=== PATIENT | male | born 1995 | race Hispanic/Latino ===

== ENCOUNTER 2020-06-11 06:38 | Emergency (ER) | payer SELFPAY ==
--- NOTE | 2020-06-11 07:33 | RAD ---
LEFT ANKLE 3 VIEWS: HISTORY: Injury left ankle pain FINDINGS: Soft tissue swelling is present. The ankle mortise is maintained. No acute fracture or dislocation is identified.
== END 2020-06-11 07:45 | disposition home or self-care (01) ==
LOC: ERS 06:38
DX: S93.402A Sprain of unspecified ligament of left ankle, initial encounter (principal); X50.1XXA Overexertion from prolonged static or awkward postures, initial encounter

== ENCOUNTER 2020-06-11 23:55 | Inpatient (IN) | payer SELFPAY ==
[2020-06-12] MEDS ORDERED: Morphine 4 MG/ML VIAL ONE ×2 (00:19→02:45)
[2020-06-12] MEDS ORDERED: Ondansetron PF 4 MG/2 ML Vial ONE (00:19)
[2020-06-12] MEDS ORDERED: Piperacillin/Tazobactam 4.5 GM VIAL ONE (00:19)
[2020-06-12] MEDS ORDERED: Vancomycin 1 GM/200 ML BAG ONE (00:23)
[2020-06-12 00:31] LABS: #Basophils 0.1 thou/uL (0.0-0.2); #Eosinphils 0.1 thou/uL (0.0-0.7); #Lymphocytes 1.9 thou/uL (1.20-3.40); #Monocytes 1.3 thou/uL (0.11-0.59); #Neutrophils 13.6 thou/uL (1.40-6.50); %Basophils 0.5 % (0.0-1.0); %Eosinophils 0.5 % (0.0-10.0); %Monocytes 7.6 % (0.0-10.0); %Neutrophils 80.3 % (42.0-75.0); Hemoglobin 15.5 g/dL (14.0-18.0); Mean Corpuscular HGB CONC 33.8 g/dL (32.0-36.0); Mean Corpuscular Hemoglobin 30.2 pg (27.0-31.0); Mean Corpuscular Volume 89.1 fL (78.0-98.0); Mean Platelet Volume 8.1 fL (7.4-10.4); Platelet Count 236 thou/uL (130-400); RBC Distribution Width 11.4 % (11.5-14.5); Red Blood Cell (RBC) Count 5.13 mill/uL (4.70-6.10); White Blood Cell (WBC) Count 16.9 thou/uL (4.8-10.8)
[2020-06-12 00:52] LABS: ALT (SGPT) 115 U/L (8-55); AST (SGOT) 40 U/L (5-34); Albumin 4.3 g/dL (3.5-5.0); Alkaline Phosphatase 56 U/L (40-110); Anion Gap 14 mmol/L (10-20); BUN (Urea Nitrogen) 7 mg/dL (8.9-20.6); Calc. Creatinine Clearance 0 mL/min (70-130); Calcium 9.1 mg/dL (7.8-10.44); Carbon Dioxide 28 mmol/L (22-29); Chloride 98 mmol/L (98-107); Globulin 3.8 g/dL (2.4-3.5); Glucose 133 mg/dL (70-105); Potassium 3.9 mmol/L (3.5-5.1); Protein, Total 8.1 g/dL (6.0-8.3); Sodium 136 mmol/L (136-145)
[2020-06-12 02:03] LABS: Bilirubin Negative (Negative); Blood, Urine Negative (Negative); Clarity Clear (Clear); Glucose, Urine (Dipstick) Normal (Negative); Ketone, Urine Negative (Negative); Leukocyte Negative Leu/uL (Negative); Nitrite Negative (Negative); Protein, Urine (Dipstick) Negative (Neg-Trace); Specific Gravity, Urine 1.029 (1.002-1.036); Urobilinogen Normal mg/dL (Less than 2); pH, Urine 7.5 (5.0-9.0)
--- NOTE | 2020-06-12 02:25 | PDOC.HHP ---
Hospitalist HPI - History of Present Illness Abdominal pain History of Present Illness: PCP: None The patient is a 24-year-old male with no significant past medical history that presents to the emergency department for the above complaint. The patient reports the acute onset of abdominal pain the morning prior to admission to the hospital, located bilateral lower abdomen, described as dull and aching in nature, constant, increasing in intensity, exacerbated with movement and relieved by nothing. He reports associated diarrhea, having 2 episodes of loose stools. Denies any hematochezia/melena, recent travel or antibiotic usage. Denies nausea or emesis. Denies any recent fever or chills. Denies any dysuria or hematuria. He trialed ibuprofen and Imodium prior to arrival with no relief of his symptoms. He has no other complaints at this time. ED Course: VITAL SIGNS [facility] Jun 11, 2020 23:56 MAGALY Romo Susannah BP: 122/60, Pulse: 105, Resp: 20, Temp: 101.4 (Oral), Pain: 9, O2 sat: 98 on (Room Air), Time: 06/11/2020 23:56. VITAL SIGNS [place] Jun 12, 2020 00:33 MAGALY Meneses Jonathan BP: 125/68 (Right Arm), Pulse: 94, Resp: 16, O2 sat: 99 on (Room Air), Time: 1 08/13/2019 00:33. VITAL SIGNS [place] Jun 12, 2020 01:00 MAGALY Meneses Jonathan BP: 122/67 (Right Arm), MAP: 85, Pulse: 96, Resp: 16, O2 sat: 99 on (Room Air), Time: 06/12/2020 01:00. VITAL SIGNS [place] Jun 12, 2020 01:30 MAGALY Meneses Jonathan BP: 127/78 (Right Arm), MAP: 94, Pulse: 96, Resp: 18, Pain: 3, O2 sat: 99 on (Room Air), Time: 06/12/2020 01:30. VITAL SIGNS SatJun 12, 2020 02:00 MAGALY Meneses Jonathan BP: 125/52 (Right Arm), MAP: 76, Pulse: 96, Resp: 16, Pain: 3, O2 sat: 97 on (Room Air), Time: 06/12/2020 02:00 Medications: Zosyn 4.5 g IV Piggy Back Given 01:40 06/12/2020 morphine injection 4 mg IV Push Given 00:37 06/12/2020 vancomycin intravenous 1 g IV Piggy Back Given 00:32 06/12/2020 ondansetron HCl intravenous 4 mg IV Push Given 00:30 06/12/2020 sodium chloride 0.9 % intravenous 1000 mL IV Fluid Infusion Given 00:30 06/12/2020 Hospitalist ROS - Review of Systems Cardiovascular: denies: chest pain, palpitations, edema, light headedness Skin: denies: rash Neurological: denies: weakness, change in speech, confusion All other systems reviewed; all pertinent +/- noted in HPI/Subj - Medication Medications: None Allergies: No known drug allergies Hospitalist History - Past Medical History Source: patient, family, RN notes reviewed Cardiac: reports: no pertinent history Pulmonary: reports: no pertinent history Gastrointestinal: reports: no pertinent history - Past Surgical History Past Surgical History: reports: no pertinent history - Family History Other Family History: Noncontributory to this case. - Social History Smoking Status: Never smoker Alcohol: reports: Rare Drugs: reports: none Living Situation: With Family Activity level: independent ambulation - Exam General Appearance: NAD, awake alert. negative: ill appearing General - other findings: Uncomfortable appearing Eye: anicteric sclera ENT: normocephalic atraumatic Neck: supple, symmetric Heart: RRR, no murmur, no gallops, no rubs, normal peripheral pulses Respiratory: CTAB, no wheezes, no rales, no ronchi, normal chest expansion, no tachypnea Gastrointestinal: soft, non-distended, normal bowel sounds, no rigidity, tender to palpation (Left lower quadrant). negative: no guarding Gastrointestinal - other findings: Rebound tenderness present Extremities: no cyanosis, no edema Skin: no rashes Neurological: no focal deficits Musculoskeletal: normal tone, normal strength Psychiatric: normal affect, A&O x 3 Hospitalist Results - Labs Result Diagrams: 06/12/20 00:07 06/12/20 00:07 Lab results: WBC 16.9 thou/uL (4.8-10.8) H 06/12/20 00:07 Hgb 15.5 g/dL (14.0-18.0) 06/12/20 00:07 Hct 45.7 % (42.0-52.0) 06/12/20 00:07 MCV 89.1 fL (78.0-98.0) 06/12/20 00:07 Plt Count 236 thou/uL (130-400) 06/12/20 00:07 Neutrophils % 80.3 % (42.0-75.0) H 06/12/20 00:07 Sodium 136 mmol/L (136-145) 06/12/20 00:07 Potassium 3.9 mmol/L (3.5-5.1) 06/12/20 00:07 Chloride 98 mmol/L (98-107) 06/12/20 00:07 Carbon Dioxide 28 mmol/L (22-29) 06/12/20 00:07 BUN 7 mg/dL (8.9-20.6) L 06/12/20 00:07 Creatinine 0.82 mg/dL (0.7-1.3) 06/12/20 00:07 Glucose 133 mg/dL (70-105) H 06/12/20 00:07 Lactic Acid 1.3 mmol/L (0.5-2.2) 06/12/20 00:20 Calcium 9.1 mg/dL (7.8-10.44) 06/12/20 00:07 Total Bilirubin 1.0 mg/dL (0.2-1.2) 06/12/20 00:07 AST 40 U/L (5-34) H 06/12/20 00:07 ALT 115 U/L (8-55) H 06/12/20 00:07 Alkaline Phosphatase 56 U/L (40-110) 06/12/20 00:07 Serum Total Protein 8.1 g/dL (6.0-8.3) 06/12/20 00:07 Albumin 4.3 g/dL (3.5-5.0) 06/12/20 00:07 Urine Ketones Negative mg/dL (Negative) 06/12/20 01:42 Urine Blood Negative (Negative) 06/12/20 01:42 Urine Nitrite Negative (Negative) 06/12/20 01:42 Ur Leukocyte Esterase Negative Vani/uL (Negative) 06/12/20 01:42 - EKG Interpretation EK lead EKG shows normal sinus rhythm, Rate (beats per minute): 96, with no ectopics, Conduction normal, ST segments normal, T waves normal, [place], left - Radiology Interpretation Chest x-ray Status: pending Additional Comment: No acute cardiothoracic process CT scan - abdomen Status: pending Additional Comment: Uncomplicated sigmoid diverticulitis Hospitalist H&P A/P - Problem (1) Diverticulitis Code(s): K57.92 - DVTRCLI OF INTEST, PART UNSP, W/O PERF OR ABSCESS W/O BLEED Status: Acute (2) Sepsis Code(s): A41.9 - SEPSIS, UNSPECIFIED ORGANISM Status: Acute - Plan Plan: 24/M with no significant PMH presents for abdominal pain. Admit to medical floor, inpatient status. Expected length of stay greater than 2 midnights. Presented febrile, tachycardic with NL BP, RR, SPO2. EKG normal sinus rhythm. CT abdomen pelvis shows uncomplicated sigmoid diverticulitis. CXR no acute process. LA 1.3, WBC 16.9, UA unremarkable Blood/urine CX pending #Diverticulitis Uncomplicated, sigmoid. Continue Zosyn Continue IVF Morphine and Zofran as needed Clear liquid diet starting tomorrow. #Sepsis Without septic shock. Likely related to problem #1. Received 1L NS in ED, BP stable. Continue maintenance IVF resuscitation. Blood/urine cultures pending. Continue Zosyn, discontinue vancomycin. SCDs for DVT prophylaxis. Pepcid for GI prophylaxis. Full code. Discussed case with Dr. Cassie Mccain.
[2020-06-12] MEDS ORDERED: Acetaminophen 500 MG TAB ONE (02:46)
[2020-06-12] MEDS ORDERED: Ondansetron ODT 4 MG TAB PO PRN (02:48)
[2020-06-12] MEDS ORDERED: Ondansetron PF 4 MG/2 ML Vial IVP PRN (02:48)
[2020-06-12] MEDS ORDERED: Sodium Chloride 0.9% 1,000 ML IV SCH (03:00)
[2020-06-12] MEDS: Morphine 2 MG/ML VIAL SLOW IVP PRN ×5 (03:55→21:18)
[2020-06-12] MEDS: Sodium Chloride 0.9% 1,000 ML IV SCH ×3 (03:56→16:30)
[2020-06-12 04:43] VITALS: BMI 30.4
[2020-06-12 05:47] LABS: #Basophils 0.1 thou/uL (0.0-0.2); #Eosinphils 0.1 thou/uL (0.0-0.7); #Lymphocytes 2.1 thou/uL (1.20-3.40); #Monocytes 1.3 thou/uL (0.11-0.59); #Neutrophils 13.2 thou/uL (1.40-6.50); %Basophils 0.4 % (0.0-1.0); %Eosinophils 0.4 % (0.0-10.0); %Lymphocytes 12.6 % (21.0-51.0); %Monocytes 7.5 % (0.0-10.0); %Neutrophils 79.2 % (42.0-75.0); Hemoglobin 13.6 g/dL (14.0-18.0); Mean Corpuscular HGB CONC 34.2 g/dL (32.0-36.0); Mean Corpuscular Hemoglobin 30.8 pg (27.0-31.0); Mean Corpuscular Volume 90.1 fL (78.0-98.0); Platelet Count 193 thou/uL (130-400); RBC Distribution Width 11.4 % (11.5-14.5); Red Blood Cell (RBC) Count 4.42 mill/uL (4.70-6.10); White Blood Cell (WBC) Count 16.6 thou/uL (4.8-10.8)
[2020-06-12] MEDS ORDERED: Piperacillin/Tazobactam 3.375 GM in Sodium Chloride 0.9% 100 ML IVPB SCH (06:00)
[2020-06-12 06:10] LABS: Anion Gap 14 mmol/L (10-20); BUN (Urea Nitrogen) 7 mg/dL (8.9-20.6); Calc. Creatinine Clearance 173 mL/min (70-130); Calcium 8.6 mg/dL (7.8-10.44); Carbon Dioxide 25 mmol/L (22-29); Chloride 101 mmol/L (98-107); Glucose 122 mg/dL (70-105); Potassium 3.9 mmol/L (3.5-5.1); Sodium 136 mmol/L (136-145)
[2020-06-12] MEDS: Piperacillin/Tazobactam 3.375 GM in Sodium Chloride 0.9% 100 ML IVPB SCH ×3 (08:04→20:50)
[2020-06-12] MEDS: Famotidine/PF 20 mg/2ml Vial SLOW IVP SCH ×2 (08:07→21:15)
[2020-06-12 08:13] LABS: SARS-CoV-2 MS2 Positive; SARS-CoV-2 N Gene Negative; SARS-CoV-2 S Gene Negative; SARS-CoV-2 by NAA Not Detected (NotDetected); SARS-CoV-2 orf1ab Negative
--- NOTE | 2020-06-12 08:42 | CT ---
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 TECHNIQUE: Axial computed tomography images of the abdomen and pelvis with intravenous contrast. CONTRAST: With; ISOVUE 370,100mL COMPARISON: None provided. FINDINGS: LUNG BASES: No basilar airspace consolidation or pleural effusion. LIVER: Hepatic steatosis suggested. No focal lesion. Normal hepatic size and contour. GALLBLADDER AND BILE DUCTS: Unremarkable. No calcified stone. No ductal dilation. PANCREAS: Unremarkable. SPLEEN: Unremarkable. ADRENAL GLANDS: Unremarkable. KIDNEYS, URETERS, AND BLADDER: Unremarkable. No hydronephrosis or nephrolithiasis. No ureteral or bladder calculi. Unremarkable ure ters. Normal urinary bladder. STOMACH AND BOWEL: No obstruction. Unremarkable stomach and small bowel. Proximal sigmoid colonic mural thickening and significant pericolonic fat stranding, with a few associated diverticula. No evidence of pericoloni c abscess or perforation. APPENDIX: No CT evidence for appendicitis. PERITONEUM: No free fluid. No free air. LYMPH NODES: No lymphadenopathy. REPRODUCTIVE: Unremarkable as visualized. VASCULATURE: No aortic aneurysm. BONES: No fracture or suspicious osseous abnormality. Chronic appearing bilateral L5 spondylolysis, without listhesis. Transitional lumbosacral anatomy on the left. ABDOMINAL WALL AND SOFT TISSUES: Unremarkable. IMPRESSION: Uncomplicated acute sigmoid diverticulitis. ELECTRONICALLY SIGNED BY: Jarad Ford MD Jun 12, 2020 1:31:12 AM ROD MACHINE OPERATOR This report is intended for review by the ordering physician only, in accordance of law. If you recei ve this report in error, please call [facility] at [phone]. FINAL REPORT CT ABDOMEN AND PELVIS WITH IV CONTRAST: I agree with the preliminary report given by [facility]. POS: OFF
[2020-06-12] MEDS: Famotidine 20 MG TAB PO SCH ×2 (09:05→21:25)
--- NOTE | 2020-06-12 09:26 | RAD ---
PORTABLE CHEST 1 VIEW: Date: 06/12/2020 Time: 0020 hours HISTORY: Lower abdominal pain. FINDINGS: The heart size is normal. The lungs are expanded and clear. The bony thorax is normal. IMPRESSION: Normal exam. POS: OFF
[2020-06-12] MEDS: Acetaminophen 325 MG TAB PO PRN (12:26)
[2020-06-12] MEDS ORDERED: Iopamidol-370 76% 500 ML 1 ML ONE (13:43)
[2020-06-13] MEDS: Acetaminophen 325 MG TAB PO PRN ×2 (02:41→10:00)
[2020-06-13] MEDS: Piperacillin/Tazobactam 3.375 GM in Sodium Chloride 0.9% 100 ML IVPB SCH ×3 (02:42→13:37)
[2020-06-13] MEDS: Sodium Chloride 0.9% 1,000 ML IV SCH ×2 (02:42→09:49)
[2020-06-13 09:15] LABS: #Basophils 0.1 thou/uL (0.0-0.2); #Eosinphils 0.2 thou/uL (0.0-0.7); #Lymphocytes 1.3 thou/uL (1.20-3.40); #Monocytes 0.8 thou/uL (0.11-0.59); #Neutrophils 11.2 thou/uL (1.40-6.50); %Basophils 0.4 % (0.0-1.0); %Eosinophils 1.3 % (0.0-10.0); %Lymphocytes 9.4 % (21.0-51.0); %Monocytes 6.2 % (0.0-10.0); %Neutrophils 82.7 % (42.0-75.0); Hemoglobin 13.9 g/dL (14.0-18.0); Mean Corpuscular HGB CONC 33.8 g/dL (32.0-36.0); Mean Corpuscular Hemoglobin 30.8 pg (27.0-31.0); Mean Corpuscular Volume 91.1 fL (78.0-98.0); Mean Platelet Volume 8.1 fL (7.4-10.4); Platelet Count 197 thou/uL (130-400); RBC Distribution Width 11.4 % (11.5-14.5); Red Blood Cell (RBC) Count 4.51 mill/uL (4.70-6.10); White Blood Cell (WBC) Count 13.5 thou/uL (4.8-10.8)
[2020-06-13 09:43] LABS: ALT (SGPT) 72 U/L (8-55); AST (SGOT) 26 U/L (5-34); Albumin 3.8 g/dL (3.5-5.0); Alkaline Phosphatase 52 U/L (40-110); Anion Gap 15 mmol/L (10-20); BUN (Urea Nitrogen) 8 mg/dL (8.9-20.6); Bilirubin, Total 1.1 mg/dL (0.2-1.2); Calc. Creatinine Clearance 170 mL/min (70-130); Calcium 8.4 mg/dL (7.8-10.44); Carbon Dioxide 27 mmol/L (22-29); Chloride 101 mmol/L (98-107); Globulin 3.1 g/dL (2.4-3.5); Glucose 156 mg/dL (70-105); Protein, Total 6.9 g/dL (6.0-8.3); Sodium 139 mmol/L (136-145)
[2020-06-13] MEDS: Famotidine 20 MG TAB PO SCH (09:50)
[2020-06-13] MEDS: Famotidine/PF 20 mg/2ml Vial SLOW IVP SCH (09:51)
[2020-06-13 14:20] LABS: Hemoglobin A1c 5.2 % (4.0-6.0)
--- NOTE | 2020-06-13 16:27 | PDOC.DS.DS ---
Provider - Provider Date of Admission: 06/12/20 02:17 Date of Discharge: 06/13/20 Admitting Provider: Cassie Galaviz MD Primary Care Physician: NO PCP PROVIDER Course - Hospital Course Hospital Course: Patient is a very pleasant 24-year-old male who presents to the hospital with lower abdominal pain. He was noted to have acute diverticulitis. Started on broad-spectrum antibiotics. Patient has been tolerating his diet. I did use a associate professor and patient was notified that he will need to follow-up with GI as outpatient in 1 month. I have advised him to not drink alcohol while he is on these antibiotics. Patient understands. Also dietary restrictions were given to the patient. #1 sepsis #2 diverticulitis Resuscitation Status: 06/12/20 02:48 Resuscitation Status Routine Co-Sign Provider: Resuscitation Status: FULL: Full Resuscitation Discussed with: patient - Labs Lab Results: 06/13/20 08:32 06/13/20 08:32 Abnormal Lab Results - Last 48 hrs 06/12/20 00:07: BUN 7 L, AST 40 H, ALT 115 H, Globulin 3.8 H, Albumin/Globulin Ratio 1.1 L 06/12/20 00:07: WBC 16.9 H, RDW 11.4 L, Neutrophils % 80.3 H, Lymphocytes % 11.0 L, Neutrophils # 13.6 H, Monocytes # 1.3 H 06/12/20 05:31: BUN 7 L 06/12/20 05:31: WBC 16.6 H, RBC 4.42 L, Hgb 13.6 L, Hct 39.9 L, RDW 11.4 L, Neutrophils % 79.2 H, Lymphocytes % 12.6 L, Neutrophils # 13.2 H, Monocytes # 1.3 H 06/13/20 08:32: BUN 8 L, ALT 72 H 06/13/20 08:32: WBC 13.5 H, RBC 4.51 L, Hgb 13.9 L, Hct 41.1 L, RDW 11.4 L, Neutrophils % 82.7 H, Lymphocytes % 9.4 L, Neutrophils # 11.2 H, Monocytes # 0.8 H Microbiology - Entire Visit 06/12/20 01:42 Urine voided Urine Culture - Final NO GROWTH AT 36 HOURS 06/12/20 00:20 Venous blood - Right Arm Blood Culture - Preliminary Specimen has been received and culture in progress. No Growth to date. 06/12/20 00:20 Venous blood - Left Hand Blood Culture - Preliminary Specimen has been received and culture in progress. No Growth to date. - Physical Exam Vitals: Vital Signs (12 hours) Temp Pulse Resp BP Pulse Ox 06/13/20 11:42 98.6 F 79 16 108/71 98 06/13/20 09:30 98 06/13/20 07:36 99.1 F 81 18 115/53 L 98 Weight Weight 194 lb 9.6 oz Physical Exam: The patient was seen and examined on the day of discharge. Plan - Discharge Medications Prescriptions: Ciprofloxacin [Cipro] 500 mg PO Q12HR #26 tab metroNIDAZOLE [Flagyl] 500 mg PO Q8HR #39 tab Saccharomyces boulardii [Florastor] 250 mg PO DAILY #20 cap Home Medications: Medication Instructions Recorded Confirmed Type Ciprofloxacin [Cipro] 500 mg PO Q12HR #26 tab 06/13/20 Rx Saccharomyces boulardii [Florastor] 250 mg PO DAILY #20 cap 06/13/20 Rx metroNIDAZOLE [Flagyl] 500 mg PO Q8HR #39 tab 06/13/20 Rx Allergies: No Known Allergies Allergy (Verified 06/12/20 04:38) - Discharge Instructions Discharge Instructions:: PLEASE FOLLOW UP WITH YOUR PRIMARY CARE DOCTOR AND YOU WILL NEED TO SEE A GASTROENTEROLIGIST IN ONE MONTH. Activity:: Activity as Tolerated Nourishment:: Regular Diet Additional Dietary Instructions:: DO NOT EAT ANY SEEDS OR NUTS - Follow up Plan Referrals: PROVIDER,NO PCP [Primary Care Provider] - Mamadou Dyer MD [Active] - Disposition: HOME Quality - Care Measures CORE MEASURES:: N/A
[2020-06-13 16:44] VITALS: BP 114/60; TEMP 98.4
== END 2020-06-13 16:27 | disposition home or self-care (01) | DRG 872 ==
LOC: ERS 23:55 → T4-A 06-12 02:17
PROVIDERS: ADMIT Internal Medicine; ATTEND Internal Medicine
DX: A41.9 Sepsis, unspecified organism (principal); K57.32 Diverticulitis of large intestine without perforation or abscess without bleeding; Z20.828 Contact with and (suspected) exposure to other viral communicable diseases
CPT/HCPCS: 36415; 71045; 74177; 80053; 81003; 83036; 83605; 85025; 87040; 87086; 87635; 93005; 96365; 96367; 96375; 96376; J2270; J2405; J2543; J3370; J3490; Q9967; S0028; U0003